=== PATIENT | female | born 1955 | race Caucasian/White ===

== ENCOUNTER → 2023-09-24 | Emergency (ER) | payer OTHER ==
[2023-09-24 09:57] LABS: Absolute Lymphocytes (CBC) 2.1 K/uL (0.7-4.9); Hematocrit 46.3 % (36.0-45.0); Lymphocytes % 23.5 % (15.3-44.8); MCV 90.2 fL (80-100); MPV 8.4 fL (7.6-11.3); Platelets 362 thou/uL (152-406); RBC Red Blood Cell Count 5.14 M/uL (3.86-4.86)
--- NOTE | 2023-09-24 09:58 | RAD REPORT ---
EXAM DESCRIPTION: CT - Head Brain Wo Cont - 09/24/2023 9:42 am CLINICAL HISTORY: Head injury status post fall COMPARISON: None TECHNIQUE: Computed axial tomography of the head was obtained. IV contrast was not requested. All CT scans are performed using dose optimization technique as appropriate and may include automated exposure control or mA/KV adjustment according to patient size. FINDINGS: An intracranial bleed is not seen The ventricles are normal in caliber No extra-axial fluid collection is noted. Right occipital scalp hematoma. Fluid within the sinuses/ mastoids is not seen. IMPRESSION: No acute intracranial abnormality is seen If patient's symptoms persist MRI of the brain would be recommended
[2023-09-24 10:07] LABS: Protime INR 0.96
[2023-09-24 10:14] LABS: Albumin 4.5 g/dL (3.4-5.0); Bilirubin Direct 0.1 mg/dL (0-0.2); Bilirubin Indirect, Calculated 0.4 mg/dL (0.2-0.8); Bilirubin Total 0.5 mg/dL (0.2-1.0); Magnesium 2.2 mg/dL (1.6-2.4); Protein, Total 9.2 g/dL (6.4-8.2); Troponin High Sensitivity 3.1 pg/mL (<58.9)
--- NOTE | 2023-09-24 10:16 | RAD REPORT ---
EXAM DESCRIPTION: Malinda Single View09/24/2023 10:00 am CLINICAL HISTORY: Fall with chest pain COMPARISON: 2011 FINDINGS: The lungs appear clear of acute infiltrate. The heart is normal size IMPRESSION: No acute abnormalities displayed
--- NOTE | 2023-09-24 10:37 | ER ---
Nurse's Notes [facility] Name: Payton Ivory Age: 68 yrs Sex: Female : 1955 Arrival Date: 09/24/2023 Time: 08:49 Bed 3 Private MD: Eduardo Boggs C Diagnosis: Fall on same level, unspecified;Abrasion of scalp, initial encounter Presentation: 09/24 08:58 Chief complaint: Patient states: got our of bed at 445 and next thing she knows is she iw was on the floor, she hit her head on the hard wood floor, took some Tylenol for head ache and it feels better but there is s knot and small laceration, has never passed out before, she does not remember feeling dizzy before passing out . not on blood thinners. 08:58 Acuity: EV 3 iw 09:00 Coronavirus screen: At this time, the client does not indicate any symptoms associated iw with coronavirus-19. Ebola Screen: Patient negative for fever greater than or equal to 101.5 degrees Fahrenheit, and additional compatible Ebola Virus Disease symptoms Patient denies exposure to infectious person. Patient denies travel to an Ebola-affected area in the 21 days before illness onset. No symptoms or risks identified at this time. Initial Sepsis Screen: Does the patient meet any 2 criteria? No. Patient's initial sepsis screen is negative. Does the patient have a suspected source of infection? No. Patient's initial sepsis screen is negative. Risk Assessment: Do you want to hurt yourself or someone else? Patient reports no desire to harm self or others. Onset of symptoms was September 24, 2023. 09:00 Method Of Arrival: Ambulatory iw Historical: - Allergies: 09:00 No Known Allergies; iw - PMHx: 09:00 GERD; Hypothyroidism; Osteoporosis; iw - PSHx: 09:00 hysterectomy and reconstructive surgery; wrist; feet; iw - Immunization history:: Adult Immunizations not up to date, Client reports receiving the 2nd dose of the Covid vaccine. - Social history:: Smoking status: Patient denies any tobacco usage or history of. Screenin:04 [facility] ED Fall Risk Assessment (Adult) History of falling in the last 3 months, kc6 including since admission Yes- physiologic fall (2 pts) Confusion or Disorientation No (0 pts) Intoxicated or Sedated No (0 pts) Impaired Gait No (0 pts) Mobility Assist Device Used No (0 pt) Altered Elimination No (0 pt) Score/Fall Risk Level 0 - 2 = Low Risk. Abuse screen: Denies threats or abuse. Denies injuries from another. Nutritional screening: No deficits noted. Tuberculosis screening: No symptoms or risk factors identified. Assessment: 09:19 General: Appears in no apparent distress. comfortable, well groomed, well developed, kc6 Behavior is calm, cooperative, appropriate for age. Neuro: Level of Consciousness is awake, alert, obeys commands, Oriented to person, place, time, situation, Appropriate for age Reports headache Denies dizziness. Cardiovascular: Capillary refill < 3 seconds. Respiratory: Airway is patent Trachea midline Respiratory effort is even, unlabored, Respiratory pattern is regular, symmetrical. GI: No signs and/or symptoms were reported involving the gastrointestinal system. : No signs and/or symptoms were reported regarding the genitourinary system. EENT: No signs and/or symptoms were reported regarding the EENT system. Derm: Skin is healthy with good turgor, Skin is pink, warm \T\ dry. Musculoskeletal: No signs and/or symptoms reported regarding the musculoskeletal system. Circulation, motion, and sensation intact. Capillary refill < 3 seconds, Range of motion: intact in all extremities. 09:20 Injury Description: Laceration sustained to scalp is clean, superficial, not bleeding, kc6 was sustained 4-6 hours ago. a small amount of bleeding noted at this time. 10:25 Reassessment: Patient appears in no apparent distress at this time. No changes from kc6 previously documented assessment. Patient and/or family updated on plan of care and expected duration. Pain level reassessed. Patient is alert, oriented x 3, equal unlabored respirations, skin warm/dry/pink. 10:58 Reassessment: Patient and/or family updated on plan of care and expected duration. Pain mb9 level reassessed. Patient is alert, oriented x 3, equal unlabored respirations, skin warm/dry/pink. Patient states feeling better. Patient states symptoms have improved. Vital Signs: 09:00 BP 118 / 66; Pulse 85; Resp 16; Temp 97; Pulse Ox 100% on R/A; Weight 64.41 kg; Height iw 5 ft. 4 in. ; 10:25 BP 115 / 77; Pulse 77; Resp 16 S; Pulse Ox 98% on R/A; kc6 09:00 Body Mass Index 24.37 (64.41 kg, 162.56 cm) ED Course: 08:50 Patient arrived in ED. rg4 08:50 Eduardo Boggs MD is Private Physician. rg4 08:59 Triage completed. iw 09:02 Makeda Beckett MD is Attending Physician. gb1 09:02 Arm band placed on. iw 09:03 Lia Hernandez RN is Primary Nurse. kc6 09:05 Patient has correct armband on for positive identification. Bed in low position. Call kc6 light in reach. Side rails up X 1. Adult w/ patient. Client placed on continuous cardiac and pulse oximetry monitoring. NIBP monitoring applied. 09:05 Patient maintains SpO2 saturation greater than 95% on room air. kc6 09:42 Inserted saline lock: 24 gauge in left antecubital area, using aseptic technique. mb9 09:43 Head Brain Wo Cont In Process Unspecified. EDMS 09:52 Protime (+INR) Sent. mb9 09:52 Magnesium Sent. mb9 09:52 CBC with Automated Diff Sent. mb9 09:52 NT PRO-BNP Sent. mb9 09:52 Troponin High Sensitivity Sent. mb9 09:52 Liver (Hepatic) Function Sent. mb9 09:52 Basic Metabolic Panel Sent. mb9 09:53 EKG done, by ED staff, reviewed by Makeda Beckett MD. mb9 10:02 Chest Single View In Process Unspecified. EDMS 10:33 Eduardo Boggs MD is Referral Physician. gb1 10:58 No provider procedures requiring assistance completed. IV discontinued, intact, mb9 bleeding controlled, No redness/swelling at site. Pressure dressing applied. Administered Medications: No medications were administered Outcome: 10:36 Discharge ordered by MD. gb1 10:58 Discharged to home ambulatory, mb9 10:58 Condition: stable 10:58 Discharge instructions given to patient, Instructed on discharge instructions, follow up and referral plans. Demonstrated understanding of instructions, follow-up care, 10:58 Patient left the ED. cece9 Signatures: Dispatcher [employer] EDMS Kyra John RN RN Neisha Currie rg4 Lia Hernandez RN RN kc6 Breneman, Mary Beth, RN RN mb9 Blocker, Gina, MD MD gb1 Corrections: (The following items were deleted from the chart) 09:00 08:58 Chief complaint: Patient states: got our of bed at 445 and next thing she knows iw is she was on the floor, she hit her head on the hard wood floor, took some Tylenol for head ache and it feels better but there is s knot and small laceration, has never passed out before, she does not remember feeling dizzy before passing out iw 09:00 BP 118 / 66; Pulse 85bpm; Resp 16bpm; Pulse Ox 100% RA; Temp 97F; iw iw : 09:19 Derm: Skin is healthy with good turgor, Skin is pink, warm \T\ dry. kc6 kc6
--- NOTE | 2023-09-24 10:37 | EDPHYS ---
Physician Documentation [facility] Name: Payton Ivory Age: 68 yrs Sex: Female : 1955 Arrival Date: 09/24/2023 Time: 08:49 Bed 3 Private MD: Eduardo Boggs C ED Physician Makeda Beckett HPI: 09/24 09:05 This 68 yrs old Female presents to ER via Ambulatory with complaints of Fall gb1 Injury. 09:23 68-year-old female presents to the emergency department by POV with her at the 1 bedside after falling and hitting her head getting out of bed this morning. She remembers getting up at 4:45 AM and needing to use the restroom. When she turned the corner after getting out of the bed she fell straight backwards and hit her head on the hardwood floor. She does not remember the time Before she fell. She did have a headache after the fall and tried to lay back down to go back to sleep but she was unable. She went to get her who is in the room sleeping and decided to come to the emergency department to get checked out. Patient is currently taking semaglutide for weight loss for 1 year as she is lost 40 pounds. She called the nurse practitioner who manages her weight loss program and they directed her to come to the emergency department. She also reports that she has been nauseated in the morning but attributed that to her semaglutide use. She denies any vomiting or fevers. She denies any blurry vision or chest pain shortness of breath.. Historical: - Allergies: 09:00 No Known Allergies; iw - PMHx: 09:00 GERD; Hypothyroidism; Osteoporosis; iw - PSHx: 09:00 hysterectomy and reconstructive surgery; wrist; feet; iw - Immunization history:: Adult Immunizations not up to date, Client reports receiving the 2nd dose of the Covid vaccine. - Social history:: Smoking status: Patient denies any tobacco usage or history of. ROS: 09:23 Constitutional: Negative for fever, chills, and weight loss, gb1 09:23 All other systems are negative, Exam: 09:23 Constitutional: This is a well developed, well nourished patient who is awake, alert, gb1 and in no acute distress. Eyes: Pupils equal round and reactive to light, extra-ocular motions intact. Lids and lashes normal. Conjunctiva and sclera are non-icteric and not injected. Cornea within normal limits. Periorbital areas with no swelling, redness, or edema. ENT: Nares patent. No nasal discharge, no septal abnormalities noted. Tympanic membranes are normal and external auditory canals are clear. Oropharynx with no redness, swelling, or masses, exudates, or evidence of obstruction, uvula midline. Mucous membranes moist. Neck: Trachea midline, no thyromegaly or masses palpated, and no cervical lymphadenopathy. Supple, full range of motion without nuchal rigidity, or vertebral point tenderness. No Meningismus. Chest/axilla: Normal chest wall appearance and motion. Nontender with no deformity. No lesions are appreciated. Cardiovascular: Regular rate and rhythm with a normal S1 and S2. No gallops, murmurs, or rubs. Normal PMI, no JVD. No pulse deficits. Respiratory: Lungs have equal breath sounds bilaterally, clear to auscultation and percussion. No rales, rhonchi or wheezes noted. No increased work of breathing, no retractions or nasal flaring. Abdomen/GI: Soft, non-tender, with normal bowel sounds. No distension or tympany. No guarding or rebound. No evidence of tenderness throughout. Back: No spinal tenderness. No costovertebral tenderness. Full range of motion. Skin: Warm, dry with normal turgor. Normal color with no rashes, no lesions, and no evidence of cellulitis. MS/ Extremity: Pulses equal, no cyanosis. Neurovascular intact. Full, normal range of motion. Neuro: Awake and alert, GCS 15, oriented to person, place, time, and situation. Cranial nerves II-XII grossly intact. Motor strength 5/5 in all extremities. Sensory grossly intact. Cerebellar exam normal. Normal gait. Psych: Awake, alert, with orientation to person, place and time. Behavior, mood, and affect are within normal limits. 09:23 Head/face: Noted is contusion, hematoma, that is severe, of the left occipital area and right occipital area, Vital Signs: 09:00 BP 118 / 66; Pulse 85; Resp 16; Temp 97; Pulse Ox 100% on R/A; Weight 64.41 kg; Height iw 5 ft. 4 in. ; 10:25 BP 115 / 77; Pulse 77; Resp 16 S; Pulse Ox 98% on R/A; kc6 09:00 Body Mass Index 24.37 (64.41 kg, 162.56 cm) iw MDM: 09:05 Patient medically screened. gb1 09:23 Differential diagnosis: closed head injury, contusion, Subdural hematoma, brain mass, gb1 skull fracture, scalp contusion with hematoma.. Data reviewed: vital signs, nurses notes. 10:37 ED course: 68-year-old female who does have a posterior occipital scalp gb1 hematoma but no subdural hematoma or skull fracture. Her laboratories today on evaluation are within normal limits. Hemoglobin hematocrit are stable as are her vital signs at time of discharge. I have given the patient explicit return precautions which complaints at the time of discharge. She will be escorted home by her .. 09/24 09:51 Order name: Basic Metabolic Panel; Complete Time: 10:24 EDMS 09/24 09:51 Order name: Liver (Hepatic) Function; Complete Time: 10:24 EDMS 09/24 09:51 Order name: Troponin High Sensitivity; Complete Time: 10:24 EDMS 09/24 09:51 Order name: NT PRO-BNP; Complete Time: 10:24 EDMS 09/24 09:51 Order name: Magnesium; Complete Time: 10:24 EDMS 09/24 09:51 Order name: CBC with Automated Diff; Complete Time: 10:24 EDMS 09/24 09:51 Order name: Protime (+INR); Complete Time: 10:24 EDMS 09/24 09:21 Order name: CT Head Brain wo Cont gb1 09/24 09:31 Order name: Head Brain Wo Cont; Complete Time: 10:24 EDMS 09/24 09:32 Order name: Chest Single View; Complete Time: 10:24 EDMS 09/24 09:21 Order name: EKG; Complete Time: 11:29 gb1 09/24 09:21 Order name: Cardiac monitoring; Complete Time: 09:39 gb1 09/24 09:21 Order name: EKG - Nurse/Tech; Complete Time: 09:52 gb1 09/24 09:21 Order name: IV Saline Lock; Complete Time: 09:39 gb1 09/24 09:21 Order name: Labs collected and sent; Complete Time: 09:39 gb1 09/24 09:21 Order name: O2 Per Protocol; Complete Time: 09:39 gb1 09/24 09:21 Order name: O2 Sat Monitoring; Complete Time: 09:39 gb1 Administered Medications: No medications were administered Disposition Summary: 09/24/23 10:36 Discharge Ordered Notes: Location: Home gb1 Problem: new gb1 Symptoms: have improved gb1 Condition: Stable gb1 Diagnosis - Fall on same level, unspecified gb1 - Abrasion of scalp, initial encounter gb1 Followup: gb1 - With: Eduardo Boggs MD - When: - Reason: Re-evaluation by your physician Discharge Instructions: - Discharge Summary Sheet gb1 - Hematoma, [id number] gb1 Forms: - Medication Reconciliation Form gb1 - Thank You Letter gb1 - Antibiotic Education gb1 - Prescription Opioid Use gb1 - Patient Portal Instructions gb1 - Leadership Thank You Letter gb1 Signatures: Dispatcher [employer] Kyra Ibrahim, RN RN Makeda Romero MD MD gb1
[2023-09-24 11:13] VITALS: BP 115/77; TEMP 97; O2SAT 98
--- NOTE | 2023-09-25 17:37 | EKG ---
Test Date: 2023-09-24 Test Time: 09:52:34 Sack [employer]er Machine: HALIE MEASUREMENT RESULTS: Intervals: Rate: 73 FL: 148 QRSD: 68 QT: 404 QTc: 445 Center: P: 66 FL: 148 QRS: 43 T: 30 INTERPRETIVE STATEMENTS: Normal sinus rhythm Normal ECG Compared to ECG 05/02/2006 09:50:25 No significant changes Electronically Signed On 09-25-23 17:34:20 [employer] by Srini Holcomb
== END ==
LOC: ER 08:49
DX: S00.01XA Abrasion of scalp, initial encounter (principal); W18.30XA Fall on same level, unspecified, initial encounter
CPT/HCPCS: 36415; 70450; 71045; 80048; 80076; 83735; 83880; 84484; 85025; 85610; 93005; 99284

== ENCOUNTER 2024-08-17 13:44 | Observation (INO) | payer OTHER ==
[2024-08-17 15:34] VITALS: BMI 24.9
[2024-08-17 16:35] LABS: Absolute Basophils 0.1 K/uL (0-0.5); Absolute Eosinophils 0.1 K/uL (0-0.5); Absolute Lymphocytes (CBC) 1.4 K/uL (0.7-4.9); Absolute Monocytes 0.6 K/uL (0.1-1.3); Absolute Neutrophil 3.3 K/uL (1.8-8.0); Basophils % 1.1 % (0-1.3); Eosinophils % 1.9 % (0-4.4); Hematocrit 42.5 % (36.0-45.0); Hemoglobin 14.2 g/dL (12.0-15.0); MCH 31.2 pg (27.0-35.0); MCHC 33.5 g/dL (32.0-36.0); MCV 93.1 fL (80-100); MPV 8.6 fL (7.6-11.3); Nucleated Red Blood Cells % 0.1 % (0-0); Platelets 241 thou/uL (152-406); RBC Red Blood Cell Count 4.56 M/uL (3.86-4.86); Red Cell Distribution Width 13.5 % (12.1-15.2)
[2024-08-17] MEDS: ASPIRIN EC 81 MG TAB PO ONE (16:49)
[2024-08-17] MEDS: ENOXAPARIN 60 MG/0.6 ML SQ ONE (16:49)
[2024-08-17 16:57] LABS: Albumin 3.3 g/dL (3.4-5.0); Albumin/Globulin Ratio 0.9 (1.1-1.8); Anion Gap 9.3 mEq/L (5.0-15.0); Bilirubin Total 0.3 mg/dL (0.2-1.0); Globulin 3.8 g/dL (2.3-3.5); Protein, Total 7.1 g/dL (6.4-8.2); Troponin High Sensitivity 3.1 pg/mL (<58.9)
[2024-08-17 16:58] LABS: Magnesium 2.3 mg/dL (1.6-2.4); Potassium 4.3 mEq/L (3.5-5.1)
--- NOTE | 2024-08-17 19:35 | RAD REPORT ---
EXAMINATION: ONE VIEW CHEST XR CLINICAL INDICATION: Female, 69 years old.,unstable angina TECHNIQUE: Frontal chest projection is submitted. Examination is limited by patient positioning and t echnique. COMPARISON: 09/24/2023 FINDINGS: The lungs are well inflated and clear. No pneumothorax or sizable effusion. The heart is normal in s ize. Mediastinal contours are unremarkable. IMPRESSION: No acute intrathoracic abnormalities.
[2024-08-17] MEDS: ATORVASTATIN 40 MG TAB PO SCH (20:51)
[2024-08-17] MEDS: FLUTICASONE 50MCG NASAL SPRAY NAS SCH (22:00)
[2024-08-18] MEDS: LEVOTHYROXINE SOD 0.025 MG TAB PO SCH (06:29)
[2024-08-18] MEDS: THYROID 30 MG TAB PO SCH (06:29)
--- NOTE | 2024-08-18 06:33 | HP ---
Date of Admission: 08/17/2024 Chief Complaint: Chest pain. History Of Present Illness: This is a 69-year-old pleasant female patient, who called my office with complaints of chest pain and was requested to come to office right away and after she was evaluated at office, decision was made to admit her to the hospital. The patient reported that this past weekend, she had 2 episodes of chest pain at rest. First one was Saturday night around 10:30 p.m. while she was in the bed, all of a sudden she started to have midsternal chest pain that radiated through and through to her back between her shoulder blades and she took 4 Tums without any relief and there were no aggravating or relieving factors. Pain lasted for about 30 minutes or so. Around 2:30 yesterday morning, she woke up again from her sleep with chest pain and associated diaphoresis and this time symptoms lasted again for about 30 minutes. The patient thought about going to the emergency room, but she did not and did not seek any medical attention. The patient has been seeing medical billing and coding specialist in [place], Dr. Worthy, and reports that she is scheduled to have right shoulder surgery for rotator cuff tear in about 2 weeks. There is no aggravating or relieving factor for this chest pain. After the patient was evaluated at office, I recommended her to get admitted to the hospital with concerns about unstable angina and plan of treatment and details were discussed with her. Allergies: NO KNOWN ALLERGIES. Medications: Atorvastatin 20 mg daily, bupropion 150 mg daily, levothyroxine 25 mcg daily, Linzess 145 mcg daily, omeprazole 40 mg daily, raloxifene 60 mg daily, [place] Thyroid 30 mg daily. Review of Systems: Cardiovascular: As mentioned above. ENT: She has some runny nose and stuffy nose in last few days. All other systems reviewed and negative. Past Medical History: Significant for hypothyroidism, hyperlipidemia, gastroesophageal reflux disease, diverticulosis. Past Surgical History: Significant for surgery for rectal fissure, hysterectomy with bilateral salpingo-oophorectomy, bladder suspension surgery for right wrist fracture, and surgery for right foot plantar fasciitis and left foot tendon rupture. Family History: Father , had congestive heart failure. Mother , had multiple sclerosis. Brother has diabetes. Social History: Negative for smoking and alcohol use. Physical Examination: Vital Signs: Blood pressure 126/62, pulse 82, temperature 97.7, respiratory rate 15, weight 148.2 pounds, height 64 inches. General: Awake, alert, oriented, not in distress. HEENT: Head atraumatic, normocephalic. Conjunctivae nonerythematous. Sclerae white. Mouth, no thrush or edema noted. Ears/Nose, no mass, lesion, discharge noted. Neck: Supple. No JVD, lymph nodes, bruit, thyromegaly noted. Lungs: Bilateral good equal air entry. Clear to auscultation. No rhonchi. No rales. Heart: Normal heart sounds, no murmur or gallop. Abdomen: Soft, bowel sounds normal. No guarding, rigidity, tenderness, mass, hepatosplenomegaly, distention, or bruit noted. Extremities: No leg edema. No calf tenderness. Skin: No rash, ulcer, cellulitis. Lymphatics: No lymph node enlargement in neck, supraclavicular, infraclavicular region. Neuro: No focal neurological deficit. Chest: Unremarkable. External Genitalia: Deferred. Rectal: Deferred. Laboratory Data: WBC 5.5, hemoglobin 14.2, platelets 241. Sodium 141, potassium 4.3, chloride 110, bicarb 26, BUN 4, creatinine 0.88, glucose 90, AST 42, ALT 84, troponin 3.1. EKG was normal. Chest x-ray was negative for any acute changes. Impression: 1. Unstable angina. 2. Hyperlipidemia. 3. Hypothyroidism. 4. Gastroesophageal reflux disease. 5. Diverticulosis. Plan: We will go ahead and admit the patient to hospital for further evaluation and management of this problem. The patient is appropriate for inpatient and is expected to spend 2 midnights in hospital. We will go ahead and consult Cardiology for this unstable angina. Give aspirin and Lovenox per order and keep the patient n.p.o. after midnight and I have communicated details with [facility], Dr. Kwok and the patient will have cardiac cath procedure done tomorrow and I have discussed those details with the patient as well. Hyperlipidemia will be managed with statin therapy and for hypothyroidism, continue her levothyroxine. Total time spent today was 85 minutes including evaluation and management for this hospital admission and evaluation at office as well as communication with the patient prior to arrival to office and communication with [facility], and review of prior office records. RADHA/COOPER Voice ID: [id number] YOLETTE
[2024-08-18] MEDS: ACETAMINOPHEN 500 MG TAB PO ONE (06:54)
[2024-08-18] MEDS: PANTOPRAZOLE 40MG TABLET PO SCH (07:30)
--- NOTE | 2024-08-18 07:39 | PN ---
Date of Progress Note: 08/18/2024 Subjective: The patient was seen this morning for followup. She denies any chest pain complaint overnight. She is having some sinus headache and requesting some Tylenol. Fluticasone nasal spray was ordered last night for her, but the patient says that nurse told her that it was not available for her to use last night. She denies any chest pain overnight. Physical Examination: Vital Signs: Reviewed. Temperature 98.7, pulse 89, respiratory rate 15, blood pressure 139/62, oxygen saturation 96%. HEENT: Unremarkable. Lungs: Clear to auscultation. Heart: Sounds normal. Abdomen: Soft. Bowel sounds normal. No guarding, rigidity, tenderness, distention. Extremities: No leg edema. Laboratory Data: Lipid profile is pending from this morning. Impression: 1. Unstable angina. 2. Hyperlipidemia. 3. Allergic rhinitis. Plan: We will go ahead and continue current medical management. The patient received aspirin yesterday and a dose of Lovenox. We will continue her statin therapy. Tylenol was ordered for her sinus headache this morning and the patient will remain n.p.o. for cardiac cath, which will be done today. If she has a cardiac cath done through radial artery approach, then I have instructed her for 1 week, she should not carry anything more than 8-ounce glass of water with that particular hand and not to pull anything or carry anything heavy on that hand for 1 week. Depending on cardiac cath finding, we will decide further plan of treatment. RADHA/MODL Voice ID: [id number] Report ID: [id number] YOLETTE
[2024-08-18] MEDS: ASPIRIN EC 81 MG TAB PO SCH (07:49)
[2024-08-18] MEDS: BUPROPION HCL XL 150 MG TAB PO SCH (07:50)
[2024-08-18] MEDS ORDERED: HEPA 1000U/500MLS 2,000 UNIT/1,000 ML BAG IV ONE (08:41)
[2024-08-18] MEDS ORDERED: CLOPIDOGREL 75 MG TABLET ONE (08:42)
[2024-08-18] MEDS ORDERED: MIDAZOLAM HCL 2 MG/2 ML INJ ONE (08:42)
[2024-08-18] MEDS ORDERED: ATROPINE SULF 1 MG/10 ML SYR IV ONE (08:42)
[2024-08-18] MEDS ORDERED: LIDOCAINE 1% 20 ML MDV ONE (08:42)
[2024-08-18] MEDS ORDERED: HEPARIN 10,000 UNIT/10 ML VIAL IV ONE (08:42)
[2024-08-18] MEDS ORDERED: TICAGRELOR 90 MG TABLET PO ONE (08:43)
[2024-08-18] MEDS ORDERED: HEPARIN 5000 UNIT/ML 1 ML VIAL ONE (08:43)
[2024-08-18] MEDS ORDERED: ASPIRIN 325 MG TAB ONE (08:43)
[2024-08-18] MEDS ORDERED: FENTANYL CITR 100 MCG/2 ML ONE (08:43)
[2024-08-18 09:00] VITALS: TEMP 98.4
[2024-08-18] MEDS ORDERED: NA CHLORIDE 0.9% 500 ML ONE (09:12)
[2024-08-18] MEDS ORDERED: Phenylephrine HCl 10 MG/ML 1 ML VIAL ONE (10:00)
--- NOTE | 2024-08-18 10:15 | P.CNS ---
Date of Consult: 08/18/24 Chief Complaint: chest pain History of Present Illness: Patient with no significant PMH presented as an admission from her PCP for concerns for unstable angina, report has been having chest pain for the last few days, sharp in nature in mid chest, no radiation, on/off, associated with occasional palpitations, no syncope. Allergies No Known Allergies Allergy (Unverified 08/17/24 15:01) Home medications list reviewed: Yes Home Medications: Atorvastatin Calcium [Lipitor] 40 mg PO BEDTIME 08/17/24 Buproprion S.r. [Wellbutrin Sr*] 150 mg PO DAILY 08/17/24 Levothyroxine [Synthroid] 250 mcg PO [id number] 08/17/24 Linaclotide [Linzess] 145 mcg PO DAILY 08/17/24 Meloxicam, Submicronized [Meloxicam] 10 mg PO DAILY 08/17/24 Omeprazole [Prilosec] 40 mg PO DAILY 08/17/24 Thyroid,Pork [Thyroid] 30 mg PO DAILY 08/17/24 - Past Medical/Surgical History Diabetic: No -: acid reflux -: thyroid -: chronic constipation -: depression -: osteoporosis -: hysterectomy -: bilateral oopherectomy -: left foot sx -: right wrist -: rectal fissure - Social History Alcohol use: No CD- Drugs: No Caffeine use: No Place of Residence: Home Review of Systems 10-point ROS is otherwise unremarkable Physical Examination Temp Pulse Resp BP Pulse Ox 98.4 F 88 16 142/63 H 94 08/18/24 08:00 08/18/24 08:00 08/18/24 08:00 08/18/24 08:00 08/18/24 08:00 General: Alert, In no apparent distress HEENT: Atraumatic, PERRLA, Mucous membr. moist/pink, EOMI, Sclerae nonicteric Neck: Supple, 2+ carotid pulse no bruit, No LAD, Without JVD or thyroid abnormality Respiratory: Clear to auscultation bilaterally, Normal air movement Cardiovascular: Regular rate/rhythm, Normal S1 S2 Gastrointestinal: Normal bowel sounds, No tenderness Musculoskeletal: No tenderness Integumentary: No rashes Neurological: Normal gait, Normal speech, Normal tone, Normal affect Lymphatics: No axilla or inguinal lymphadenopathy Laboratory Data (last 24 hrs) 08/17/24 08/17/24 16:27 16:27 WBC 5.50 Hgb 14.2 Hct 42.5 Plt Count 241 Sodium 141 Potassium 4.3 BUN 4 L Creatinine 0.88 Glucose 90 Magnesium 2.3 Total Bilirubin 0.3 AST 42 H ALT 84 H Alkaline Phosphatase 67 - Problems (1) Chest pain Current Visit: Yes Status: Acute Plan: there was concern for unstable angina so patient underwent coronary angiogram that shown normal coronaries. work up for other reasons of chest pain per primary team. can stop the ASA. (2) Palpitations Current Visit: Yes Status: Acute Plan: outpatient follow up for event monitor
[2024-08-18 11:55] VITALS: O2SAT 97
[2024-08-18 15:16] VITALS: BP 112/47
[2024-08-18] MEDS ORDERED: LINACLOTIDE 145 MCG PO SCH (21:00)
--- NOTE | 2024-08-18 22:48 | OP ---
Date of Procedure: 08/18/2024 Surgeon: Kaleb Kwok Procedures Performed: 1.Left heart catheterization. 2.Selective coronary angiogram. Indication For Procedure: Unstable angina. Complications: None. Estimated Blood Loss: Less than 50 cc. Access: Right radial, closed by TR band. Sedation Time: 20 minutes with 1 of Versed and 25 of fentanyl. Description Of Procedure: After risks, benefits, and alternatives were explained to patient, patient agreed to proceed with the procedure and signed informed consent. The patient was brought back to [facility], prepped and draped in a sterile fashion. Time-out was performed. Sedation was administ ered. Next, right radial access was obtained using ultrasound-guided micropuncture technique. [place] 4 catheter was advanced over J-wire to the LV cavity. LVEDP was obtained. Pullback did not show an y gradient. Same catheter was used for selective angiogram of the left and right coronary systems. At the end of procedure, catheter was removed. The J-wire sheath was removed. TR band was applied. Hemostasis was achieved. The patient was moved back to recovery in stable condition. Findings: 1.Left main: Short, normal. 2.LAD: Normal. 3.Left circ: Normal. 4.RCA: Normal. 5.LVEDP: 2 mmHg. Assessment And Plan: 1.Normal coronaries. 2.Normal filling pressures. 3.The plan will be to continue medical management. ABIODUN Voice ID: [id number] Report ID: [id number]
== END 2024-08-18 14:50 | disposition home or self-care (01) ==
LOC: 2ND 14:21 → INTOOBSV 14:21
PROVIDERS: ADMIT Internal Medicine; ATTEND Internal Medicine
PROC: 4A023N7 Measurement of Cardiac Sampling and Pressure, Left Heart, Percutaneous Approach (ICD-10-PCS; principal; 2024-08-17)
PROC: B2111ZZ Fluoroscopy of Multiple Coronary Arteries using Low Osmolar Contrast (ICD-10-PCS; 2024-08-17)
DX: I20.0 Unstable angina (principal); E78.5 Hyperlipidemia, unspecified; J30.9 Allergic rhinitis, unspecified; E03.9 Hypothyroidism, unspecified; R00.2 Palpitations; K57.90 Diverticulosis of intestine, part unspecified, without perforation or abscess without bleeding; K21.9 Gastro-esophageal reflux disease without esophagitis; K59.09 Other constipation; M81.0 Age-related osteoporosis without current pathological fracture; F32.A Depression, unspecified; Z79.899 Other long term (current) drug therapy; Z82.49 Family history of ischemic heart disease and other diseases of the circulatory system; Z83.3 Family history of diabetes mellitus
CPT/HCPCS: 85025; 36415; 83735; 84484; 80053; 71045; 93458; 76937; C1893; J1644; Q9966; J1650; J2003; J2250; J3010; G0378 ×3; J7040; G0379; 99152; 99153; J0461; J2371